=== PATIENT | female | born 1970 ===

== ENCOUNTER 2018-07-13 09:05 | Day surgery (SDC) | payer OTHER ==
[2018-07-13] VITALS (8 sets, daily range): BP systolic 95–113; BP diastolic 37–69
[~2018-07-13] VITALS: Ht 180.3 cm; Wt 73.0 kg
--- NOTE | 2018-07-13 07:58 | Pre-Procedure Note/Attestation ---
Pre-Procedure Note/Attestation Complete Prior to Procedure Planned Procedure: left Procedure Narrative: shoulder arthroscopy, sad, possible rc rpair Indications for Procedure Pre-Operative Diagnosis: left shoulder impingement, rct Attestation I attest that I discussed the nature of the procedure; its benefits; risks and complications; and alternatives (and the risks and benefits of such alternatives ), prior to the procedure, with the patient (or the patient's legal civil rights representative). I attest that, if there was a reasonable possibility of needing a blood transfusion, the patient (or the patient's legal civil rights representative) was given the [facility] standardized written summary, pursuant to the [place] Blood Safety Act ([place] Health and Safety Code # 1645, as amended). I attest that I re-evaluated the patient just prior to the surgery and that there has been no change in the patient's H&P, except as documented below: Blake Gonzalez MD Jul 13, 2018 07:58
--- NOTE | 2018-07-13 07:58 | Operative Note - PDOC ---
Operative Note Operative Note Pre-op Diagnosis: left shoulder impingement, rct Procedure: see op report Post-op Diagnosis: same as pre-op plus Operative Findings: consistent w/pre-op dx studies Anesthesia: MAC Specimen: none Complications: none Condition: stable Estimated Blood Loss: none Implant(s) used?: No Blake Gonzalez MD Jul 13, 2018 07:58
[~2018-07-13 09:05] MED LIST: ceFAZolin 1gm IVPB IVPB ONE; celeBREX 200mg Cap **SURGERY PATIENTS ONLY ORAL ONE; oxyCONTIN 20mg tab ORAL ONE
[2018-07-13] MEDS ORDERED: CYCLOBENZAPRINE10 MG ORAL (10:07)
[2018-07-13] MEDS ORDERED: LEVOTHYROXINE125 MCG ORAL (10:07)
[2018-07-13] MEDS ORDERED: celeBREX 200mg Cap **SURGERY PATIENTS ONLY ORAL ONE (10:19)
[2018-07-13] MEDS ORDERED: oxyCONTIN 20mg tab ORAL ONE (10:19)
[2018-07-13] MEDS ORDERED: LR 1000ml 1,000 ML IVLG SCH (10:42)
[2018-07-13] MEDS ORDERED: Metoclopramide 10mg/2ml Inj IVP PRN (10:45)
[2018-07-13] MEDS ORDERED: Meperidine 50mg/ml Inj(FOR RIGORS ONLY) IVP PRN (10:45)
[2018-07-13] MEDS ORDERED: HYDROcodone/Acetamin 7.5/325 tab ORAL PRN (10:45)
[2018-07-13] MEDS ORDERED: Norco 5mg/325mg tab ORAL PRN ×2 (10:45→19:01)
[2018-07-13] MEDS ORDERED: LORazepam Inj 2mg/ml 1ml IV PRN (10:45)
[2018-07-13] MEDS ORDERED: Ketorolac 30mg Inj IV PRN ×2 (10:45)
[2018-07-13] MEDS ORDERED: Hydromorphone 0.5mg/0.5ml inj IVP PRN (10:45)
[2018-07-13] MEDS ORDERED: fentaNYL 100 mcg/2 mL IV PRN (10:45)
[2018-07-13] MEDS ORDERED: DiphenhydrAMINE 50mg/ml Inj IVP PRN (10:45)
[2018-07-13] MEDS ORDERED: Atropine Sulfate 0.4mg/ml inj IVP PRN (10:45)
[2018-07-13] MEDS ORDERED: Midazolam 2mg/2ml Inj IVP PRN (10:45)
[2018-07-13] MEDS ORDERED: oxyCODONE HCL/Acetaminophen 5/325mg ORAL PRN (10:45)
--- NOTE | 2018-07-13 10:46 | Anethesia Preoperative Eval ---
Anesthesia Pre-op PMH/ROS General Date of Evaluation: Jul 13, 2018 Time of Evaluation: 11:22 Anesthesiologist: Robert ASA Score: ASA 2 Mallampati Score Class I : Soft palate, uvula, fauces, pillars visible Class II: Soft palate, uvula, fauces visible Class III: Soft palate, base of uvula visible Class IV: Only hard plate visible Mallampati Classification: Class II Surgeon: Carlos Diagnosis: L Shoulder Pain Surgical Procedure: L Shoulder Arthroscopy Anesthesia History: none Family History: no anesthesia problems Allergies: Coded Allergies: No Known Allergies (Unverified , 07/12/18) Medications: see eMAR Patient NPO?: Yes Past Medical History Neurologic/Psychiatric: Reports: other - Seizures By Hx Endocrine: Reports: hypothyroidism Hematology/Immune: Reports: anemia PSxH Narrative: CS Anesthesia Pre-op Phys. Exam Physician Exam Last Vital Signs Date Time Temp Pulse Resp B/P (MAP) Pulse Ox O2 Delivery O2 Flow Rate FiO2 07/13/18 10:05 99.1 72 16 113/69 100 Room Air Constitutional: NAD Neurologic: CN 2-12 intact Cardiovascular: RRR Respiratory: CTA Gastrointestinal: S/NT/ND Airway Exam Mallampati Score: Class II MO: full ROM: full Teeth: intact Anesthesia Pre-op A/P Labs Urine Test Test 07/13/18 09:25 Urine HCG, Qualitative Negative (NEGATIVE) Risk Assessment & Plan Assessment: ASA 2 Plan: GA, SED, Supraclavicular Block Status Change Before Surgery: No Pre-Antibiotics Dru Gram Ancef IV Given Within 1 Hr of Incision: Yes Time Given: 11:37 Edy Jones MD Jul 13, 2018 10:46
--- NOTE | 2018-07-13 10:47 | Immediate Post-Op Evaluation ---
Immediate Post-Op Evalulation Immediate Post-Op Evalulation Procedure: L Shoulder Arthroscopy Date of Evaluation: Jul 13, 2018 Time of Evaluation: 13:39 IV Fluids: 650 LR Blood Products: 0 Estimated Blood Loss: 10 Urinary Output: 0 Blood Pressure Systolic: 107 Blood Pressure Diastolic: 37 Pulse Rate: 73 Respiratory Rate: 16 O2 Sat by Pulse Oximetry: 100 Temperature (Fahrenheit): 97 Pain Score (1-10): 1 Nausea: No Vomiting: No Complications 0 Patient Status: awake, reacts, patent, none Hydration Status: adequate Dru Gram Ancef IV Given Within 1 Hr of Incision: Yes Time Given: 11:37 Edy Jones MD Jul 13, 2018 10:47
--- NOTE | 2018-07-13 10:47 | 48 Hour Post Anesthesia Eval ---
Post Anesthesia Evaluation Procedure: L Shoulder Arthroscopy Date of Evaluation: Jul 13, 2018 Time of Evaluation: 15:43 Blood Pressure Systolic: 109 0: 57 Pulse Rate: 72 Respiratory Rate: 18 Temperature (Fahrenheit): 98.2 O2 Sat by Pulse Oximetry: 100 Airway: patent Nausea: No Vomiting: No Pain Intensity: 1 Hydration Status: adequate Cardiopulmonary Status: Stable Mental Status/LOC: patient returned to baseline Follow-up Care/Observations: 0 Post-Anesthesia Complications: 0 Follow-up care needed: ready to discharge Edy Jones MD Jul 13, 2018 10:47
[2018-07-13] MEDS ORDERED: Lidocaine 1% MPF 10mg/ml 5ml ONE (11:22)
[2018-07-13] MEDS ORDERED: Propofol 200mg/20ml IV ONE (11:22)
[2018-07-13] MEDS ORDERED: Ropivacaine 5mg/ml Vial 30ml INJ ONE (11:22)
[2018-07-13] MEDS ORDERED: Sodium Chloride 10ml vial INJ ONE (11:22)
[2018-07-13] MEDS ORDERED: Dexamethasone 4mg/ml vial ONE (11:22)
[2018-07-13] MEDS ORDERED: NS Irrig 4000ml IRRIG ONE (11:30)
[2018-07-13] MEDS ORDERED: LR 1000ml ONE (11:30)
[2018-07-13] MEDS ORDERED: Bupivacaine w/Epi 0.25% 30ml Vial INJ ONE (12:07)
[2018-07-13] MEDS ORDERED: EPINEPHrine 1mg/1ml Amp ONE (12:51)
--- NOTE | 2018-07-13 18:45 | Operative Note - Dictated ---
DATE OF OPERATION: 07/13/2018 PREOPERATIVE DIAGNOSES: 1. Left shoulder partial rotator cuff tear. 2. Left shoulder impingement syndrome. POSTOPERATIVE DIAGNOSES: 1. High-grade partial articular-sided rotator cuff tear subscapularis and supraspinatous. 2. Left shoulder biceps tendinosis/tear. 3. Impingement syndrome bursitis. PROCEDURES: 1. Left shoulder diagnostic arthroscopy extensive intra-articular debridement. 2. Left shoulder arthroscopic rotator cuff repair. 3. Subacromial decompression bursectomy. 4. Soft tissue biceps tenodesis. DESCRIPTION OF PROCEDURE: Informed consent was obtained. The patient was taken to the operating room and placed under monitored anesthesia control interscalene. Camera was then placed in the glenohumeral joint. Systematic tour of the shoulder was performed. There is no significant chondral damage. The anterior labrum appeared to be intact. There was a small tear of the subscap tendon. There is tendinosis and longitudinal split of the biceps tendon along the bicipital groove. The undersurface of the acromion was well visualized. The footprint was somewhat detached off the bone lateral to the articular margin. At this point, trocar was then placed to debride the partial subscap rotator cuff tear. At this point, the biceps tendon was left intact until the rotator cuff was repaired. Percutaneous anchor was then placed just lateral to the articular margin and two mattress sutures were placed through the healthy tissue of the supraspinatus and infraspinatus. Once this was done, a complete bursectomy was performed. The acromium was identified and acromioplasty was started from lateral to medial and completed from posterior to anterior. Two mattress sutures were then tied in the subacromial space. The camera was then placed in the glenohumeral joint and here the footprint was recreated. At this point, a Prolene stitch was placed through the biceps tendon. The tenotomy was performed and soft tissue biceps tenodesis was performed. Once this was done, the camera was placed in to the subacromial space and the Prolene stitch was tied. Once that was performed, the instruments were removed. Portal sites were closed using 3-0 Monocryl sutures. Steri-Strips and a sterile dressing were applied. The patient was awoken and taken to recovery room with stable vital signs. ESTIMATED BLOOD LOSS: None. COMPLICATIONS: None. SPECIMENS: None. IMPLANTS: Include 1 arthroscopic anchor. Blake Gonzalez M.D. DR: USAMA JOB#: [id number] CC: LEENA
[2018-07-13] MEDS ORDERED: Tylenol #3 tab (300mg/30mg) ORAL PRN (19:01)
[2018-07-13] MEDS ORDERED: D5 1/2NS 1,000 ML IV SCH (19:01)
[2018-07-13] MEDS ORDERED: HYDROmorphone 1mg/ml Carpuject SUBQ PRN (19:01)
== END 2018-07-13 15:00 | disposition home or self-care (01) ==
LOC: SUR 09:05
DX: M75.112 Incomplete rotator cuff tear or rupture of left shoulder, not specified as traumatic (principal); M25.812 Other specified joint disorders, left shoulder; S46.212A Strain of muscle, fascia and tendon of other parts of biceps, left arm, initial encounter; G40.909 Epilepsy, unspecified, not intractable, without status epilepticus; E03.9 Hypothyroidism, unspecified; X58.XXXA Exposure to other specified factors, initial encounter
CPT/HCPCS: 29823; 29826; 29827; 29828; 81025; J0171; J0690; J1100; J2250; J2405; J2704; J2795; 94003; 94150; C1713

== ENCOUNTER 2019-02-28 05:46 | Inpatient (IN) | payer OTHER ==
[2019-02-28] VITALS (15 sets, daily range): BP systolic 101–117; BP diastolic 50–75
[~2019-02-28] VITALS: Ht 180.3 cm; Wt 74.4 kg
[~2019-02-28 05:46] MED LIST changes: +CYCLOBENZAPRINE10 MG ORAL; +LEVOTHYROXINE125 MCG ORAL; -ceFAZolin 1gm IVPB IVPB ONE; -celeBREX 200mg Cap **SURGERY PATIENTS ONLY ORAL ONE; -oxyCONTIN 20mg tab ORAL ONE
[2019-02-28] MEDS ORDERED: Vancomycin 1gm/D5W 275ml IVPB ONE ×2 (06:00)
[2019-02-28] MEDS ORDERED: Pantoprazole Inj IVP ONE (06:00)
[2019-02-28] MEDS ORDERED: LR 1000ml 1,000 ML IVLG SCH (06:32)
--- NOTE | 2019-02-28 06:33 | Anethesia Preoperative Eval ---
Anesthesia Pre-op PMH/ROS General Date of Evaluation: Feb 28, 2019 Time of Evaluation: 07:41 Anesthesiologist: Robert ASA Score: ASA 2 Mallampati Score Class I : Soft palate, uvula, fauces, pillars visible Class II: Soft palate, uvula, fauces visible Class III: Soft palate, base of uvula visible Class IV: Only hard plate visible Mallampati Classification: Class II Surgeon: Saba Diagnosis: Back Pain Surgical Procedure: XLIF L2-3 Anesthesia History: none Family History: no anesthesia problems Allergies: Coded Allergies: No Known Allergies (Unverified , 07/12/18) Medications: see eMAR Patient NPO?: Yes Past Medical History Neurologic/Psychiatric: Reports: other - Hx Seizures Endocrine: Reports: hypothyroidism Hematology/Immune: Reports: anemia PSxH Narrative: L Knee, L Shoulder Sx, C/S Anesthesia Pre-op Phys. Exam Physician Exam Last Vital Signs Date Time Temp Pulse Resp B/P (MAP) Pulse Ox O2 Delivery O2 Flow Rate FiO2 02/28/19 06:13 Room Air Constitutional: NAD Neurologic: CN 2-12 intact Cardiovascular: RRR Respiratory: CTA Gastrointestinal: S/NT/ND Airway Exam Mallampati Score: Class II MO: full ROM: full Teeth: missing, intact Anesthesia Pre-op A/P Labs Urine Test Test 02/28/19 06:00 Urine HCG, Qualitative Negative (NEGATIVE) Risk Assessment & Plan Assessment: ASA 2 Plan: GA, SED, GlideScope Go Status Change Before Surgery: No Pre-Antibiotics Dru Gram Vancomycin IV Given Within 1 Hr of Incision: Yes Time Given: 08:16 Edy Jones MD Feb 28, 2019 06:33
[2019-02-28] MEDS ORDERED: Pantoprazole Inj ONE (06:38)
[2019-02-28] MEDS ORDERED: Zemuron 50mg/5ml Inj IV ONE (06:38)
[2019-02-28] MEDS ORDERED: HYDROcodone/Acetamin 7.5/325 tab ORAL PRN ×2 (06:45→15:15)
[2019-02-28] MEDS ORDERED: fentaNYL 100 mcg/2 mL IV PRN ×2 (06:45→15:00)
[2019-02-28] MEDS ORDERED: Metoclopramide 10mg/2ml Inj IVP PRN ×2 (06:45→15:00)
[2019-02-28] MEDS ORDERED: oxyCODONE HCL/Acetaminophen 5/325mg ORAL PRN ×2 (06:45→15:00)
[2019-02-28] MEDS ORDERED: Hydromorphone 0.5mg/0.5ml inj IVP PRN ×2 (06:45→15:00)
[2019-02-28] MEDS ORDERED: Meperidine 50mg/ml Inj(FOR RIGORS ONLY) IVP PRN ×2 (06:45→15:00)
[2019-02-28] MEDS ORDERED: HYDROcodone/Acetamin 5/325 tab ORAL PRN ×2 (06:45→15:00)
[2019-02-28] MEDS ORDERED: Labetalol 5mg/ml 20ml vial IV PRN ×2 (06:45→15:00)
[2019-02-28] MEDS ORDERED: Atropine Sulfate 0.4mg/ml inj IVP PRN ×2 (06:45→15:00)
[2019-02-28] MEDS ORDERED: Ketorolac 30mg Inj IV PRN ×4 (06:45→15:15)
[2019-02-28] MEDS ORDERED: LORazepam Inj 2mg/ml 1ml IV PRN ×2 (06:45→15:00)
[2019-02-28] MEDS ORDERED: Acetaminophen (Non formulary) 100 ML IV ONE (06:45)
[2019-02-28] MEDS ORDERED: Midazolam 2mg/2ml Inj IVP PRN ×2 (06:45→15:15)
[2019-02-28] MEDS ORDERED: DiphenhydrAMINE 50mg/ml Inj IVP PRN ×2 (06:45→15:00)
[2019-02-28] MEDS ORDERED: Propofol 1,000mg/ 100ml btl IV ONE ×2 (07:00)
[2019-02-28] MEDS ORDERED: LR 1000ml ONE (07:00)
[2019-02-28] MEDS ORDERED: Sodium Chloride 10ml vial INJ ONE (07:02)
[2019-02-28] MEDS ORDERED: Dexamethasone 4mg/ml vial ONE (07:02)
[2019-02-28] MEDS ORDERED: Lidocaine 1% MPF 10mg/ml 5ml ONE (07:02)
[2019-02-28] MEDS ORDERED: Lidocaine 1% Plain 30 ml INJ ONE ×4 (07:03→13:30)
[2019-02-28] MEDS ORDERED: fentaNYL 100 mcg/2 mL IV ONE ×3 (07:15→14:04)
[2019-02-28] MEDS ORDERED: Bupivacaine w/Epi 0.5% 30ml Vial INJ ONE (07:18)
[2019-02-28] MEDS ORDERED: Gelfoam Size TOPIC ONE (07:18)
[2019-02-28] MEDS ORDERED: Thrombin 5000 units TOPIC ONE (07:18)
[2019-02-28] MEDS ORDERED: Bacitracin 50000 Units Vial ONE (07:19)
--- NOTE | 2019-02-28 07:33 | Immediate Post-Op Evaluation ---
Immediate Post-Op Evalulation Immediate Post-Op Evalulation Procedure: XLIF L2-3 Date of Evaluation: Feb 28, 2019 Time of Evaluation: 14:54 IV Fluids: 1300 LR Blood Products: 0 Estimated Blood Loss: 100 Urinary Output: 1300 LR Blood Pressure Systolic: 104 Blood Pressure Diastolic: 57 Pulse Rate: 57 Respiratory Rate: 16 O2 Sat by Pulse Oximetry: 100 Temperature (Fahrenheit): 98 Pain Score (1-10): 3 Nausea: No Vomiting: No Complications 0 Patient Status: awake, reacts, patent, extubated, none Hydration Status: adequate Dru Gram Vancomycin IV Given Within 1 Hr of Incision: Yes Time Given: 08:16 Edy Jones MD Feb 28, 2019 07:33
--- NOTE | 2019-02-28 07:35 | Pre-Procedure Note/Attestation ---
Pre-Procedure Note/Attestation Complete Prior to Procedure Planned Procedure: bilateral Procedure Narrative: 1. Lateral (XLIF) approach for interbody fusion at L2-3 with interbody graft and L2-3 decompression and interspinous fusion with titanium implant and arthrodesis, use of allograft, autograft and iliac crest bone marrow aspirate. Attestation I attest that I discussed the nature of the procedure; its benefits; risks and complications; and alternatives (and the risks and benefits of such alternatives ), prior to the procedure, with the patient (or the patient's legal corporate sales representative). I attest that, if there was a reasonable possibility of needing a blood transfusion, the patient (or the patient's legal corporate sales representative) was given the [place] [facility] standardized written summary, pursuant to the Hai [place] Blood Safety Act ([place] Health and Safety Code # 1645, as amended). I attest that I re-evaluated the patient just prior to the surgery and that there has been no change in the patient's H&P, except as documented below: Boni Walter MD Feb 28, 2019 07:35
[2019-02-28] MEDS ORDERED: DiphenhydrAMINE 50mg/ml Inj ONE (07:49)
[2019-02-28] MEDS ORDERED: Heparin 1000 units/ml 1ml Vial ONE (08:23)
[2019-02-28] MEDS ORDERED: Glycopyrrolate 0.2mg/ml 1ml Vial ONE ×2 (09:14→14:05)
[2019-02-28] MEDS ORDERED: Propofol 200mg/20ml IV ONE (13:30)
[2019-02-28] MEDS ORDERED: Neostigmine 1mg/ml 10ml Inj ONE (14:05)
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
[2019-02-28] MEDS ORDERED: HYDROmorphone 1mg/ml Carpuject IVP PRN (15:15)
[2019-02-28] MEDS ORDERED: Milk of Magnesia 30ml Ud ORAL PRN (15:15)
[2019-02-28] MEDS ORDERED: Naloxone 0.4mg/ml Inj IVP PRN (15:15)
--- NOTE | 2019-02-28 15:24 | Diagnostic Imaging Report ---
Indication: Intraoperative imaging COMPARISON: None FINDINGS: 8 fluoroscopic images were obtained intraoperatively. Fluoroscopic time 117 seconds. Multiple localization images are noted. Prosthetic disc demonstrated at L2-3. Interspinous hardware also noted posteriorly at this level. IMPRESSION: Intraoperative imaging as described above
[2019-02-28] MEDS: traMADol 50mg tab ORAL PRN (18:02)
[2019-02-28] MEDS: Docusate 100mg cap ORAL SCH (18:02)
[2019-02-28] MEDS: Cyclobenzaprine 10mg Tab ORAL PRN (18:02)
[2019-02-28] MEDS: Docusate Sod/Senna tab ORAL SCH (18:02)
[2019-02-28] MEDS: NS w/KCl 20mEq 1000ml 1,000 ML IV SCH (18:08)
[2019-02-28] MEDS: HYDROcodone/Acetamin 7.5/325 tab ORAL PRN (20:45)
--- NOTE | 2019-02-28 21:23 | General Progress Note ---
Progress Note Progress Note NEUROSURGERY POST-OP S/ incisional pain under control. No leg pain O/ Last 24 Hour Vital Signs Date Time Temp Pulse Resp B/P (MAP) Pulse Ox O2 Delivery O2 Flow Rate FiO2 02/28/19 18:00 97.9 72 16 104/68 (80) 97 02/28/19 17:00 98.2 82 17 101/62 (75) 02/28/19 16:30 98.0 71 17 105/62 (76) 02/28/19 16:13 98.0 74 19 107/60 98 Nasal Cannula 2.0 02/28/19 16:00 98.0 70 18 105/51 98 Nasal Cannula 2.0 02/28/19 15:45 68 19 102/54 98 Nasal Cannula 2.0 02/28/19 15:30 66 20 101/54 99 Nasal Cannula 2.0 02/28/19 15:17 98.0 02/28/19 15:15 67 19 105/60 99 Nasal Cannula 2.0 02/28/19 15:03 66 18 113/52 100 Simple Mask 6.0 02/28/19 14:53 74 19 105/52 100 Simple Mask 6.0 02/28/19 14:48 70 18 115/53 100 Simple Mask 6.0 02/28/19 14:43 98.0 64 16 102/50 100 Simple Mask 6.0 02/28/19 14:43 57 16 100 02/28/19 06:30 97.3 54 20 105/75 (85) 99 02/28/19 06:13 Room Air Alert and oriented x 4 MAEW Normal sensation incisions are C/D/I doing well Admit PT Pain control Lumbar brace Boni Walter MD Feb 28, 2019 21:23
[2019-02-28] MEDS: ceFAZolin sod 1 GM in D5W 55 ML IV SCH (21:41)
[2019-03-01] MEDS: HYDROcodone/Acetamin 7.5/325 tab ORAL PRN ×4 (00:05→21:16)
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
[2019-03-01 03:00] VITALS: BP 107/68
[2019-03-01] MEDS: NS w/KCl 20mEq 1000ml 1,000 ML IV SCH ×3 (03:00→23:00)
[2019-03-01] MEDS: ceFAZolin sod 1 GM in D5W 55 ML IV SCH (04:05)
[2019-03-01 07:24] LABS: BLOOD UREA NITROGEN 11 mg/dL (7-18); CALCIUM 7.8 MG/DL (8.5-10.1); CARBON DIOXIDE 25 MMOL/L (21-32); CHLORIDE 107 MMOL/L (98-107); POTASSIUM 3.6 MMOL/L (3.5-5.1); SODIUM 131 MMOL/L (136-145)
--- NOTE | 2019-03-01 07:42 | 48 Hour Post Anesthesia Eval ---
Post Anesthesia Evaluation Procedure: XLIF L2-3 Date of Evaluation: Mar 01, 2019 Time of Evaluation: 07:41 Blood Pressure Systolic: 128 0: 72 Pulse Rate: 68 Respiratory Rate: 20 Temperature (Fahrenheit): 97.5 O2 Sat by Pulse Oximetry: 98 Airway: patent Nausea: No Vomiting: No Pain Intensity: 4 Hydration Status: adequate Cardiopulmonary Status: stable Mental Status/LOC: patient returned to baseline Follow-up Care/Observations: n/a Post-Anesthesia Complications: none Follow-up care needed: N/A Jorden Campo MD Mar 01, 2019 07:42
[2019-03-01] MEDS: traMADol 50mg tab ORAL PRN (09:27)
[2019-03-01] MEDS: Cyclobenzaprine 10mg Tab ORAL PRN (09:27)
[2019-03-01] MEDS: Docusate Sod/Senna tab ORAL SCH ×2 (09:28→18:50)
[2019-03-01] MEDS: Docusate 100mg cap ORAL SCH ×2 (09:28→18:50)
[2019-03-01 11:00] VITALS: BP 98/55
--- NOTE | 2019-03-01 13:30 | Diagnostic Imaging Report ---
Indication: Back pain. Technique: Frontal and lateral views of the lumbar spine Comparison: No prior lumbar spine radiographs available for comparison. Findings: There are 5 nonrib-bearing lumbar-type vertebral bodies, assuming 12 paired ribs. There is mild rotatory scoliosis of the lumbar spine. Postsurgical material is noted at the L2-L3 interspace. There is overlying subcutaneous gas in the soft tissues. No evidence of acute fractures identified. There is degenerative changes with disc space narrowing and endplate sclerosis at L5-S1. There is suggestion of facet arthropathy at this level as well. Impression: Postoperative changes at L2-L3 with gas in the 17th tissues overlying this area suggesting recent surgery. No evidence of acute fracture or traumatic malalignment. Scoliosis.
[2019-03-01 15:00] VITALS: BP 97/56
--- NOTE | 2019-03-01 15:15 | General Progress Note ---
Progress Note Progress Note Neurosurgery POD #1 S/ Ambulated right leg pain improved. Voided O/ Vs: Last 24 Hour Vital Signs Date Time Temp Pulse Resp B/P (MAP) Pulse Ox O2 Delivery O2 Flow Rate FiO2 03/01/19 07:42 68 20 98 03/01/19 03:00 99.0 75 18 107/68 (81) 96 02/28/19 23:00 99.2 81 18 117/60 (79) 98 02/28/19 21:00 Nasal Cannula 3.0 02/28/19 19:00 98.3 74 16 113/63 (80) 97 02/28/19 18:00 97.9 72 16 104/68 (80) 97 02/28/19 17:00 98.2 82 17 101/62 (75) 02/28/19 16:30 98.0 71 17 105/62 (76) 02/28/19 16:13 98.0 74 19 107/60 98 Nasal Cannula 2.0 02/28/19 16:00 98.0 70 18 105/51 98 Nasal Cannula 2.0 02/28/19 15:45 68 19 102/54 98 Nasal Cannula 2.0 02/28/19 15:30 66 20 101/54 99 Nasal Cannula 2.0 02/28/19 15:17 98.0 02/28/19 15:15 67 19 105/60 99 Nasal Cannula 2.0 O/ on exam Pleasant.A7O x4 incisons are C/D/I motor 5/5 sensory grossly normal. Laboratory Tests Test 03/01/19 04:45 Sodium Level 131 MMOL/L (136-145) L Potassium Level 3.6 MMOL/L (3.5-5.1) Chloride Level 107 MMOL/L (98-107) Carbon Dioxide Level 25 MMOL/L (21-32) Blood Urea Nitrogen 11 mg/dL (7-18) Creatinine 1.0 MG/DL (0.55-1.30) Estimat Glomerular Filtration Rate 59.7 mL/min (>60) Glucose Level 102 MG/DL (74-106) Calcium Level 7.8 MG/DL (8.5-10.1) L doing well d/c instructions reviewed with pt, family and nursing Boni Walter MD Mar 01, 2019 15:15
[2019-03-01 19:00] VITALS: BP 108/72
[2019-03-01 23:00] VITALS: BP 95/63
[2019-03-02 03:00] VITALS: BP 105/55
[2019-03-02] MEDS: HYDROcodone/Acetamin 7.5/325 tab ORAL PRN (03:28)
[2019-03-02 07:00] VITALS: BP 99/60
[2019-03-02] MEDS: NS w/KCl 20mEq 1000ml 1,000 ML IV SCH (08:19)
[2019-03-02] MEDS: Docusate Sod/Senna tab ORAL SCH (08:28)
[2019-03-02] MEDS: Docusate 100mg cap ORAL SCH (08:28)
[2019-03-02] MEDS ORDERED: OXYCODONE-ACET1 EAC5 ORAL (11:23)
[2019-03-02] MEDS: traMADol 50mg tab ORAL PRN (11:41)
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
== END 2019-03-02 12:47 | disposition home or self-care (01) | DRG 455 ==
LOC: SDSOVERFLO 05:46 → 3E 16:20
PROC: 0SG00A0 Fusion of Lumbar Vertebral Joint with Interbody Fusion Device, Anterior Approach, Anterior Column, Open Approach (ICD-10-PCS; principal; 2019-02-28 07:30)
PROC: 0SG00J1 Fusion of Lumbar Vertebral Joint with Synthetic Substitute, Posterior Approach, Posterior Column, Open Approach (ICD-10-PCS; principal; 2019-02-28 07:30)
PROC: 01NB0ZZ Release Lumbar Nerve, Open Approach (ICD-10-PCS; principal; 2019-02-28 07:30)
PROC: 0SB20ZZ Excision of Lumbar Vertebral Disc, Open Approach (ICD-10-PCS; principal; 2019-02-28 07:30)
PROC: 0QB00ZZ Excision of Lumbar Vertebra, Open Approach (ICD-10-PCS; principal; 2019-02-28 07:30)
DX: M51.16 Intervertebral disc disorders with radiculopathy, lumbar region (principal); V89.2XXS Person injured in unspecified motor-vehicle accident, traffic, sequela; M48.061 Spinal stenosis, lumbar region without neurogenic claudication; M41.86 Other forms of scoliosis, lumbar region; M25.78 Osteophyte, vertebrae; E03.9 Hypothyroidism, unspecified
CPT/HCPCS: 36415; 72020; 76000; 80048; 81025; 86850; 86900; 86901; 87081; 94003; 94150; C9399; J2405; J2710